=== PATIENT | female | born 1960 | race Hispanic/Latino ===

== ENCOUNTER 2017-04-12 09:35 | Day surgery (SDC) | payer OTHER ==
[~2017-04-12] VITALS: Ht 154.9 cm; Wt 54.3 kg
[~2017-04-12 09:35] MED LIST: ESOM40CA54 PO; SODIUM CHLORIDE 0.9% 1000ML 1,000 ML IV ONE
[2017-04-12 09:50] VITALS: BP 137/80
[2017-04-12] MEDS ORDERED: LIDOCAINE HCL 2% 20ML ONE (11:17)
[2017-04-12] MEDS ORDERED: PROPOFOL 10 MG/ML 20ML VIAL IV ONE (11:17)
[2017-04-12 11:37] VITALS: BP 98/57
[2017-04-12 11:42] VITALS: BP 108/66
[2017-04-12 11:47] VITALS: BP 115/70
[2017-04-12 11:52] VITALS: BP 117/68
[2017-04-12 12:05] VITALS: BP 129/67
== END 2017-04-12 12:20 | disposition home or self-care (01) ==
LOC: ENDO 09:35 → DAH 09:35 → ENDO 12:20
PROVIDERS: ATTEND Internal Medicine
DX: K31.89 Other diseases of stomach and duodenum (principal); E78.5 Hyperlipidemia, unspecified; F41.9 Anxiety disorder, unspecified; K64.8 Other hemorrhoids; M19.90 Unspecified osteoarthritis, unspecified site; M85.88 Other specified disorders of bone density and structure, other site; Z90.710 Acquired absence of both cervix and uterus; Z98.890 Other specified postprocedural states; Z87.891 Personal history of nicotine dependence; Z79.899 Other long term (current) drug therapy; Z88.2 Allergy status to sulfonamides
CPT/HCPCS: 43231; A4606; J2704; J3490; J7030